=== PATIENT | male | born 1945 | race Caucasian/White ===

== ENCOUNTER 2016-05-03 07:34 | Outpatient (CLI) | payer MEDICARE, OTHER | END 2016-05-03 07:35 | disposition home or self-care (01) | DX: Z00.00 Encounter for general adult medical examination without abnormal findings (principal); E11.9 Type 2 diabetes mellitus without complications; I48.91 Unspecified atrial fibrillation; E78.5 Hyperlipidemia, unspecified; M54.30 Sciatica, unspecified side ==

== ENCOUNTER 2016-11-18 07:55 | Outpatient (CLI) | payer MEDICARE, OTHER ==
[2016-11-18 11:49] LABS: HEMOGLOBIN A1C 0.62 g/dL
[2016-11-18 12:25] LABS: BUN - BLOOD UREA NITROGEN 18 mg/dL (6-20); CALCIUM 9.1 mg/dL (8.5-10.3); CARBON DIOXIDE - CO2 28 mmol/L (21-32); CHLORIDE 103 mmol/L (101-111); CHOL/HDL RATIO 2.1 (<5.0); CHOLESTEROL 127 mg/dL; CREATININE 0.8 mg/dL (0.6-1.2); GFR - MDRD 96 (>89); GLUCOSE 125 mg/dL (70-100); HDL CHOLESTEROL 60 mg/dL; POTASSIUM 4.1 mmol/L (3.5-5.0); SODIUM 137 mmol/L (135-145); TRIGLYCERIDES 37 mg/dL
[2016-11-18 13:08] LABS: LDL CHOLESTEROL,DIRECT 57 mg/dL
== END 2016-11-18 07:56 | disposition home or self-care (01) ==
LOC: LAB.F 07:55
PROVIDERS: ATTEND Internal Medicine
DX: I48.91 Unspecified atrial fibrillation (principal); E11.9 Type 2 diabetes mellitus without complications; N40.1 Benign prostatic hyperplasia with lower urinary tract symptoms; E78.5 Hyperlipidemia, unspecified; M54.30 Sciatica, unspecified side
CPT/HCPCS: 36415; 80048; 80061; 82043; 82570; 83036

== ENCOUNTER 2017-05-12 08:36 | Outpatient (CLI) | payer MEDICARE, OTHER ==
[2017-05-12 11:02] LABS: HB2 TOTAL 14.8 g/dL; HEMOGLOBIN A1C 0.64 g/dL; HEMOGLOBIN A1C % 6.1 % (4.6-6.2)
== END 2017-05-12 08:37 | disposition home or self-care (01) ==
LOC: LAB.F 08:36
PROVIDERS: ATTEND Internal Medicine
DX: E11.9 Type 2 diabetes mellitus without complications (principal)
CPT/HCPCS: 36415; 83036

== ENCOUNTER 2017-12-13 07:27 | Outpatient (CLI) | payer MEDICARE, OTHER ==
[2017-12-13 10:58] LABS: BUN - BLOOD UREA NITROGEN 21 mg/dL (6-20); CALCIUM 9.1 mg/dL (8.5-10.3); CARBON DIOXIDE - CO2 30 mmol/L (21-32); CHLORIDE 102 mmol/L (101-111); CHOL/HDL RATIO 2.3 (<5.0); CHOLESTEROL 126 mg/dL; CREATININE 0.8 mg/dL (0.6-1.2); GFR - MDRD 96 (>89); GLUCOSE 129 mg/dL (70-100); HDL CHOLESTEROL 54 mg/dL; LDL CHOLESTEROL,CALCULATED 62 mg/dL; LDL/HDL RATIO 1.1 (<3.6); SODIUM 139 mmol/L (135-145); VLDL CHOLESTEROL 10 mg/dL
[2017-12-13 11:00] LABS: CREATININE,URINE 92.6 mg/dL
[2017-12-13 11:02] LABS: HB2 TOTAL 14.9 g/dL; HEMOGLOBIN A1C 0.68 g/dL; HEMOGLOBIN A1C % 6.3 % (4.6-6.2)
[2017-12-13 11:08] LABS: MICROALBUMIN,URINE < 0.2 mg/dL (0-300.0)
[2017-12-14 09:27] LABS: HEPATITIS C ANTIBODY NON-REACTIVE (NON-REACTIVE)
== END 2017-12-13 07:28 | disposition home or self-care (01) ==
LOC: LAB.F 07:27
PROVIDERS: ATTEND Internal Medicine
DX: Z00.00 Encounter for general adult medical examination without abnormal findings (principal); I48.91 Unspecified atrial fibrillation; E11.9 Type 2 diabetes mellitus without complications; N40.1 Benign prostatic hyperplasia with lower urinary tract symptoms; E78.5 Hyperlipidemia, unspecified
CPT/HCPCS: 36415; 80048; 80061; 82043; 82570; 83036; 83721; 86803

== ENCOUNTER 2018-05-14 12:31 | Outpatient (CLI) | payer MEDICARE, OTHER ==
[2018-05-14 17:56] LABS: BILIRUBIN,URINE NEGATIVE (NEGATIVE); GLUCOSE, URINE (UA) NEGATIVE (NEGATIVE); KETONES,URINE (UA) NEGATIVE (NEGATIVE); LEUKOCYTE ESTERASE, URINE NEGATIVE (NEGATIVE); NITRITE,URINE NEGATIVE (NEGATIVE); OCCULT BLOOD,URINE NEGATIVE (NEGATIVE); PH,URINE 6.5 PH (5.0-7.5); PROTEIN,URINE NEGATIVE (NEGATIVE); UROBILINOGEN,URINE 0.2 (NORMAL) E.U./dL (NORMAL)
[2018-05-14 18:06] LABS: CLARITY,URINE CLEAR (CLEAR)
== END 2018-05-14 12:32 | disposition home or self-care (01) ==
LOC: LAB.F 12:31
PROVIDERS: ATTEND Internal Medicine
DX: Z00.00 Encounter for general adult medical examination without abnormal findings (principal); I48.91 Unspecified atrial fibrillation; N40.1 Benign prostatic hyperplasia with lower urinary tract symptoms; E78.5 Hyperlipidemia, unspecified; E11.9 Type 2 diabetes mellitus without complications; Z86.010 Personal history of colon polyps; Z12.11 Encounter for screening for malignant neoplasm of colon; N13.8 Other obstructive and reflux uropathy
CPT/HCPCS: 81001; 81003; 87086

== ENCOUNTER 2018-07-02 08:04 | Outpatient (CLI) | payer MEDICARE, OTHER ==
[2018-07-02 11:36] LABS: HB2 TOTAL 16.4 g/dL; HEMOGLOBIN A1C 0.7 g/dL; HEMOGLOBIN A1C % 6.1 % (4.6-6.2)
== END 2018-07-02 08:05 | disposition home or self-care (01) ==
LOC: LAB.F 08:04
PROVIDERS: ATTEND Internal Medicine
DX: I48.91 Unspecified atrial fibrillation (principal); N40.1 Benign prostatic hyperplasia with lower urinary tract symptoms; E78.5 Hyperlipidemia, unspecified; E11.9 Type 2 diabetes mellitus without complications
CPT/HCPCS: 36415; 83036

== ENCOUNTER 2018-12-24 07:56 | Outpatient (CLI) | payer MEDICARE, OTHER ==
[2018-12-24 10:24] LABS: BUN - BLOOD UREA NITROGEN 20 mg/dL (6-20); CALCIUM 9.3 mg/dL (8.5-10.3); CARBON DIOXIDE - CO2 30 mmol/L (21-32); CHLORIDE 98 mmol/L (101-111); CHOL/HDL RATIO 3.6 (<5.0); CHOLESTEROL 190 mg/dL; CREATININE 0.8 mg/dL (0.6-1.2); GFR - MDRD 95 (>89); GLUCOSE 119 mg/dL (70-100); HDL CHOLESTEROL 53 mg/dL; SODIUM 136 mmol/L (135-145)
[2018-12-24 10:27] LABS: CREATININE,URINE 99.2 mg/dL; MICROALBUMIN,URINE 0.4 mg/dL (0-300.0)
[2018-12-24 10:30] LABS: HB2 TOTAL 14.1 g/dL; HEMOGLOBIN A1C 0.58 g/dL; HEMOGLOBIN A1C % 5.9 % (4.6-6.2)
== END 2018-12-24 07:57 | disposition home or self-care (01) ==
LOC: LAB.S 07:56
PROVIDERS: ATTEND Internal Medicine
DX: I48.91 Unspecified atrial fibrillation (principal); N40.1 Benign prostatic hyperplasia with lower urinary tract symptoms; E78.5 Hyperlipidemia, unspecified; E11.9 Type 2 diabetes mellitus without complications; R10.2 Pelvic and perineal pain; Z86.010 Personal history of colon polyps
CPT/HCPCS: 36415; 80048; 80061; 82043; 82570; 83036; 83721

== ENCOUNTER 2020-01-06 09:03 | Outpatient (CLI) | payer MEDICARE, OTHER ==
[2020-01-06 14:34] LABS: BUN - BLOOD UREA NITROGEN 16 mg/dL (6-20); CALCIUM 9.3 mg/dL (8.5-10.3); CARBON DIOXIDE - CO2 28 mmol/L (21-32); CHLORIDE 97 mmol/L (101-111); CHOL/HDL RATIO 3.6 (<5.0); CHOLESTEROL 240 mg/dL; CREATININE 0.8 mg/dL (0.6-1.2); GLUCOSE 122 mg/dL (70-100); HDL CHOLESTEROL 67 mg/dL; LDL CHOLESTEROL,CALCULATED 164 mg/dL; LDL/HDL RATIO 2.4 (<3.6); SODIUM 133 mmol/L (135-145); VLDL CHOLESTEROL 9 mg/dL
[2020-01-06 14:39] LABS: MICROALBUM/CREATININE RATIO,UR 4.9 ug/mg (<30.0); MICROALBUMIN,URINE 0.7 mg/dL (0-300.0)
[2020-01-06 22:40] LABS: HEMOGLOBIN A1c% 6.2 % (4.27-6.07)
== END 2020-01-06 09:04 | disposition home or self-care (01) ==
LOC: LAB.S 09:03
PROVIDERS: ATTEND Internal Medicine
DX: I48.91 Unspecified atrial fibrillation (principal); N40.1 Benign prostatic hyperplasia with lower urinary tract symptoms; N13.8 Other obstructive and reflux uropathy; E78.5 Hyperlipidemia, unspecified; E11.9 Type 2 diabetes mellitus without complications; H91.90 Unspecified hearing loss, unspecified ear
CPT/HCPCS: 36415; 80048; 80061; 82043; 82570; 83036; 83721

== ENCOUNTER 2020-03-10 08:52 | Outpatient (CLI) | payer MEDICARE, OTHER ==
[2020-03-10 14:57] LABS: CHOLESTEROL 144 mg/dL; HDL CHOLESTEROL 71 mg/dL
== END 2020-03-10 08:53 | disposition home or self-care (01) ==
LOC: LAB.S 08:52
PROVIDERS: ATTEND Internal Medicine
DX: Z00.00 Encounter for general adult medical examination without abnormal findings (principal); I48.91 Unspecified atrial fibrillation; N40.1 Benign prostatic hyperplasia with lower urinary tract symptoms; N13.8 Other obstructive and reflux uropathy; E78.5 Hyperlipidemia, unspecified; E11.9 Type 2 diabetes mellitus without complications; H91.90 Unspecified hearing loss, unspecified ear; M25.552 Pain in left hip
CPT/HCPCS: 36415; 80061; 83721

== ENCOUNTER 2020-09-18 11:19 | Outpatient (CLI) | payer MEDICARE, OTHER ==
--- NOTE | 2020-09-18 11:58 | XRAY Report ---
PROCEDURE: Hip w/Pelvis 2-3V LT INDICATIONS: PAIN IN LEFT HIP TECHNIQUE: AP pelvis with lateral view(s) of the bilateral hip(s). COMPARISON: None. FINDINGS: Bones: No fractures or dislocations. Pelvic ring appears intact. No suspicious bony lesions. Mild periarticular osteophyte formation at the bilateral. Soft tissues: The visualized bowel gas pattern is normal. No suspicious soft tissue calcifications. IMPRESSION: Bilateral hip osteoarthritis. No acute fracture. No osseous lesion. If symptoms and/or c linical suspicion for pathology continue, further assessment with repeat plain films, or advanced ja ging (e.g., CT, MRI, or bone scan) is recommended for further assessment.. Reviewed by: Pop Srinivasan MD on 09/18/2020 11:57 AM PDT Approved by: Pop Srinivasan MD on 09/18/2020 11:57 AM PDT Station ID: [id number]
== END 2020-09-18 11:20 | disposition home or self-care (01) ==
LOC: DI.S 11:19
PROVIDERS: ATTEND Internal Medicine
DX: M16.0 Bilateral primary osteoarthritis of hip (principal)

== ENCOUNTER 2020-10-13 08:53 | Outpatient (CLI) | payer MEDICARE, OTHER ==
[2020-10-13 20:03] LABS: ESTIMATED AVERAGE GLUCOSE 131 mg/dL (70-100); HEMOGLOBIN A1c% 6.2 % (4.27-6.07)
== END 2020-10-13 08:54 | disposition home or self-care (01) ==
LOC: LAB.S 08:53
PROVIDERS: ATTEND Internal Medicine
DX: E11.9 Type 2 diabetes mellitus without complications (principal)
CPT/HCPCS: 36415; 83036

== ENCOUNTER 2021-01-13 07:52 | Outpatient (CLI) | payer MEDICARE, OTHER ==
[2021-01-13 15:27] LABS: BUN - BLOOD UREA NITROGEN 17 mg/dL (6-20); CALCIUM 9.3 mg/dL (8.5-10.3); CARBON DIOXIDE - CO2 29 mmol/L (21-32); CHLORIDE 101 mmol/L (101-111); CHOL/HDL RATIO 2.4 (<5.0); CHOLESTEROL 147 mg/dL; CREATININE 0.9 mg/dL (0.6-1.2); GFR - MDRD 83 (>89); GLUCOSE 107 mg/dL (70-100); HDL CHOLESTEROL 62 mg/dL; LDL CHOLESTEROL,CALCULATED 73 mg/dL; LDL/HDL RATIO 1.2 (<3.6); POTASSIUM 4.1 mmol/L (3.5-5.0); SODIUM 137 mmol/L (135-145); TRIGLYCERIDES 60 mg/dL; VLDL CHOLESTEROL 12 mg/dL
[2021-01-13 15:29] LABS: CREATININE,URINE 122.5 mg/dL; MICROALBUM/CREATININE RATIO,UR 4.1 ug/mg (<30.0); MICROALBUMIN,URINE 0.5 mg/dL (0-300.0)
[2021-01-13 20:02] LABS: ESTIMATED AVERAGE GLUCOSE 123 mg/dL (70-100); HEMOGLOBIN A1c% 5.9 % (4.27-6.07)
== END 2021-01-13 07:53 | disposition home or self-care (01) ==
LOC: LAB.S 07:52
PROVIDERS: ATTEND Internal Medicine
DX: E11.9 Type 2 diabetes mellitus without complications (principal); I10 Essential (primary) hypertension
CPT/HCPCS: 36415; 80048; 80061; 82043; 82570; 83036; 83721

== ENCOUNTER 2021-06-24 06:42 | Day surgery (SDC) | payer MEDICARE, OTHER ==
[~2021-06-24 06:42] MED LIST: CYCLOPENTOLATE 1% OPHTH DROPS 2 ML ONE; KETOROLAC 0.45% OPHTH DROPS ONE; PHENYLEPHRINE 2.5% OPHTH 2 ML DROPS ONE; PROPARACAINE 0.5% OPHTH DROPS 15 ML ONE
[2021-06-24] MEDS ORDERED: LACTATED RINGERS 1,000 ML IV ONE (06:46)
[2021-06-24] MEDS ORDERED: MIDAZOLAM 2 MG/2 ML VIAL ONE (07:22)
--- NOTE | 2021-06-24 07:45 | ANESTHESIA ---
Pre-Anesthesia VS, & Labs - Diagnosis L senile combined cataract - Procedure L extraction of cataract w/IOL Vital Signs: Temp Pulse Resp BP Pulse Ox 36.7 C 66 10 L 128/62 97 06/24/21 06:51 06/24/21 06:51 06/24/21 06:51 06/24/21 06:51 06/24/21 06:51 Height: 5 ft 11 in Weight (kg): 79.9 kg Body Mass Index: 24.5 BMI Classification: Healthy weight - NPO >8 hours - Lab Results Current Lab Results: Laboratory Tests 06/24/21 07:11: POC Whole Bld Glucose 134 H Lab results reviewed: Yes Home Medications and Allergies Home Medications: Ambulatory Orders Aspirin [Aspirin EC] 81 mg PO DAILY 06/24/21 Diltiazem HCl [Cardizem Cd] 360 mg PO DAILY 06/24/21 Doxazosin [Cardura] 4 mg PO DAILY 06/24/21 Ezetimibe/Rosuvastatin Calcium [Rosuvastatin-Ezetimibe 5-10 mg] 5 mg PO DAILY 06/24/21 metFORMIN [Glucophage] 500 mg PO ONCE 06/24/21 Aspirin [Aspirin EC] 81 mg PO DAILY 06/24/21 Diltiazem HCl [Cardizem Cd] 360 mg PO DAILY 06/24/21 Doxazosin [Cardura] 4 mg PO DAILY 06/24/21 Ezetimibe/Rosuvastatin Calcium [Rosuvastatin-Ezetimibe 5-10 mg] 5 mg PO DAILY 06/24/21 metFORMIN [Glucophage] 500 mg PO ONCE 06/24/21 Allergies/Adverse Reactions: Allergies Allergy/AdvReac Type Severity Reaction Status Date / Time No Known Drug Allergies Allergy Verified 12/22/14 17:12 Anes History & Medical History - Anesthetic History Anesthesia Complications: reports: No previous complications Family history of Anesthesia Complications: Denies Family history of Malignant Hyperthermia: Denies - Medical History Cardiovascular: reports: Atrial fibrillation Endocrine/Autoimmune: reports: Type 2 diabetes Smoking Status: Never smoker - Surgical History General: reports: Colonoscopy Eyes Ears Nose Throat (EENT): reports: Tonsil/Adenoidectomy, Other Exam General: Alert, Oriented x3, Cooperative Mouth Openin Fingerbreadth Neck Mobility: Normal Mallampati classification: II Thyromental Distance: 4-6 cm Respiratory: Lungs clear, Normal breath sounds, No respiratory distress Cardiovascular: Regular rate (hx AF 1-2 times a year) Neurological: Normal speech Mental/Cognitive Status: Alert/Oriented X3, Normal for patient Cognitive Status: Within normal limits Plan Anesthesia Type: MAC Consent for Procedure(s) Verified and Reviewed: Yes Code Status: Attempt Resuscitation ASA classification: 3-Severe systemic disease Is this case an emergency?: No
[2021-06-24] MEDS ORDERED: TIMOLOL 0.5% OPHTH DROPS OPTH ONE (08:20)
[2021-06-24] MEDS ORDERED: EPINEPHrine 1 MG/ML AMP IR ONE (08:20)
[2021-06-24] MEDS ORDERED: TRIAMCIN/MOXIFLOX OPHTHALMIC 0.6 ML VIAL IO ONE ×2 (08:20→13:37)
[2021-06-24] MEDS ORDERED: BSS/LIDOCAINE/EPINEPHRINE 1 ML SYRINGE IO ONE (08:20)
[2021-06-24] MEDS ORDERED: BRIMONIDINE 0.2% OPHTH DROPS 5 ML OPTH ONE (08:20)
[2021-06-24] MEDS ORDERED: PROPARACAINE 0.5% OPHTH DROPS 15 ML EACHEYE ONE (08:21)
[2021-06-24] MEDS ORDERED: VANCOMYCIN OPHTHALMI 8MG/0.8ML 8 MG/0.8 ML SYRINGE IO ONE (08:21)
[2021-06-24] MEDS ORDERED: LACTATED RINGERS 900 ML IV ONE (08:35)
[2021-06-24 08:51] VITALS: BP 128/60
--- NOTE | 2021-06-24 09:05 | ANESTHESIA POST OP EVALUATION ---
Anesthesia Post Eval - Post Anesthesia Eval Vitals: Last Vital Signs Temp 36.8 C 06/24/21 08:45 Pulse 63 06/24/21 08:50 Resp 15 06/24/21 08:50 BP 128/60 06/24/21 08:50 Pulse Ox 97 06/24/21 08:50 CV Function Including HR & BP: Stable Pain Control: Satisfactory Nausea & Vomiting: Negative Mental Status: Baseline Respiratory Status: Airway Patent Hydration Status: Satisfactory Anesthesia Complications: None
--- NOTE | 2021-06-24 10:23 | OPERATIVE REPORT ---
Operative Report - Other Other Information/Narrative: Date of Surgery: 06/24/21 Preop Dx: Visually significant cataract left eye. This was the first cataract surgery. Postop Dx: Same Procedure: Phacoemulsification with posterior chamber intraocular lens implant left eye Surgeon: Dr. Hira Carballo Anesthesia: Monitored anesthesia care Complications: None Operative Indications: This is a 76-year-old M with progressive vision loss in the left eye due to 3+ nuclear sclerotic and 1+ cortical cataract. Best corrected visual acuity was 20/20 with glare to 20/40 vision in the left eye. Indications for surgery were: - Overall decrease in vision - Difficulty seeing words, closed captions, or game scores on TV - Difficulty seeing street signs - Difficulty driving in low light or at night - Difficulty driving at night because of headlights from other vehicles The patient was consented at length concerning the risks and benefits of cataract surgery after which the patient expressed a desire to proceed with surgery. Operative Procedure: The patient was taken into OR#3 and placed under monitored anesthesia care. A surgical time-out was conducted confirming correct patient, correct procedure, and correct surgical site. The patient was given topical anesthesia and then prepped and draped in the usual sterile fashion. The eye was entered at the 6 and 3 oclock positions. Intracameral Shugarcaine was injected into the anterior chamber followed by a dispersive viscoelastic. A continuous-tear curvilinear capsulorhexis was performed. The nucleus was hydrodissected and phacoemulsified. The patient was twitching throughout the case due to seems to be restless leg syndrome. The cortex was evacuated using automated infusion and aspiration. The iris was somewhat floppy (probably from Doxasozin use) and at one point flowed into the I/A tip. A cohesive viscoelastic was injected into the capsular bag and a 23.0 diopter intraocular lens was inserted into the bag. Infusion and aspiration were used to evacuate the viscoelastic materials from the eye. The wounds were hydrated and the eye inflated to physiologic pressure using balanced salt solution. Approximately 0.25ml of a mixture of triamcinolone and moxifloxacin was injected trans- sclerally into the vitreous in the inferotemporal quadrant using a 30 gauge cannula. An additional 0.55ml of a mixture of triamcinolone, moxifloxacin, and vancomycin was injected subconjunctivally in the superior quadrant for infection and inflammation prophylaxis. Wound integrity was checked with Weck-Radha sponges. The patient was taken from the operating room in good condition and given post- op instructions.
[2021-06-24] MEDS ORDERED: EPINEPHrine 1 MG/ML AMP ONE (13:37)
[2021-06-24] MEDS ORDERED: BRIMONIDINE 0.2% OPHTH DROPS 5 ML ONE (13:37)
[2021-06-24] MEDS ORDERED: BSS/LIDOCAINE/EPINEPHRINE 1 ML VIAL ONE (13:37)
[2021-06-24] MEDS ORDERED: TIMOLOL 0.5% OPHTH DROPS ONE (13:37)
== END 2021-06-24 06:43 | disposition home or self-care (01) ==
LOC: SDS 06:42
PROVIDERS: ATTEND Ophthalmology
DX: E11.36 Type 2 diabetes mellitus with diabetic cataract (principal); H25.812 Combined forms of age-related cataract, left eye; Z79.84 Long term (current) use of oral hypoglycemic drugs
CPT/HCPCS: 66984; A9270; J3490; J7120

== ENCOUNTER 2021-07-29 06:28 | Day surgery (SDC) | payer MEDICARE, OTHER ==
[2021-07-29] MEDS ORDERED: LACTATED RINGERS 1,000 ML IV ONE (06:46)
[2021-07-29] MEDS ORDERED: TRIAMCIN/MOXIFLOX OPHTHALMIC 0.6 ML VIAL IO ONE ×2 (07:08→09:33)
[2021-07-29] MEDS ORDERED: EPINEPHrine 1 MG/ML AMP ONE (07:09)
[2021-07-29] MEDS ORDERED: BRIMONIDINE 0.2% OPHTH DROPS 5 ML ONE (07:10)
[2021-07-29] MEDS ORDERED: TIMOLOL 0.5% OPHTH DROPS ONE (07:10)
[2021-07-29] MEDS ORDERED: BSS/LIDOCAINE/EPINEPHRINE 1 ML VIAL ONE (07:11)
--- NOTE | 2021-07-29 07:29 | ANESTHESIA ---
Pre-Anesthesia VS, & Labs - Diagnosis R senile combined cataract - Procedure R extraction cataract w/IOL Vital Signs: Temp Pulse Resp BP Pulse Ox 36.4 C L 61 16 130/66 100 07/29/21 06:52 07/29/21 06:52 07/29/21 06:52 07/29/21 06:52 07/29/21 06:52 Height: 5 ft 11 in Weight (kg): 78 kg Body Mass Index: 24.0 BMI Classification: Healthy weight - NPO >8 hours - Lab Results Current Lab Results: Laboratory Tests 07/29/21 06:55: POC Whole Bld Glucose 134 H Lab results reviewed: Yes Home Medications and Allergies Aspirin [Aspirin EC] 81 mg PO DAILY 06/24/21 Diltiazem HCl [Cardizem Cd] 360 mg PO DAILY 06/24/21 Doxazosin [Cardura] 4 mg PO DAILY 06/24/21 Ezetimibe/Rosuvastatin Calcium [Rosuvastatin-Ezetimibe 5-10 mg] 5 mg PO DAILY 06/24/21 metFORMIN [Glucophage] 500 mg PO ONCE 06/24/21 Allergies/Adverse Reactions: Allergies Allergy/AdvReac Type Severity Reaction Status Date / Time No Known Drug Allergies Allergy Verified 07/29/21 06:49 Anes History & Medical History - Anesthetic History Anesthesia Complications: reports: No previous complications Family history of Anesthesia Complications: Denies Family history of Malignant Hyperthermia: Denies - Medical History Cardiovascular: reports: Hypertension, Atrial fibrillation Endocrine/Autoimmune: reports: Type 2 diabetes Smoking Status: Never smoker History of Cancer?: No - Surgical History General: reports: Colonoscopy Eyes Ears Nose Throat (EENT): reports: Cataracts, Tonsil/Adenoidectomy, Other Exam General: Alert, Oriented x3, Cooperative Dental: WNL Mouth Openin Fingerbreadth Neck Mobility: Normal Mallampati classification: II Thyromental Distance: 4-6 cm Respiratory: Lungs clear, Normal breath sounds, No respiratory distress Cardiovascular: Regular rate (hx afib 3-4 times in lifetime) Neurological: Normal speech Mental/Cognitive Status: Alert/Oriented X3, Normal for patient Cognitive Status: Within normal limits Plan Anesthesia Type: MAC Consent for Procedure(s) Verified and Reviewed: Yes Code Status: Attempt Resuscitation ASA classification: 3-Severe systemic disease Is this case an emergency?: No
[2021-07-29] MEDS ORDERED: MIDAZOLAM 2 MG/2 ML VIAL ONE (08:40)
[2021-07-29] MEDS ORDERED: fentaNYL 100 MCG/2 ML VIAL ONE (08:40)
[2021-07-29] MEDS ORDERED: LACTATED RINGERS 700 ML IV ONE (09:03)
--- NOTE | 2021-07-29 09:15 | OPERATIVE REPORT ---
Operative Report - Other Other Information/Narrative: Date of Surgery: 07/29/21 Preop Dx: Visually significant cataract right eye. Cataract surgery was performed in the left eye on [id number]. Postop Dx: Same Procedure: Phacoemulsification with posterior chamber intraocular lens implant right eye Surgeon: Dr. Hira Carballo Anesthesia: Monitored anesthesia care Complications: None Operative Indications: This is a 76-year-old M with progressive vision loss in the right eye due to 3+ nuclear sclerotic and 1+ cortical cataract. Best corrected visual acuity was 20/20 with glare to 20/40 vision in the right eye. Indications for surgery were: - Overall decrease in vision - Difficulty seeing words on a computer screen - Difficulty reading - Difficulty seeing words, closed captions, or game scores on TV - Difficulty seeing street signs - Difficulty driving in low light or at night - Difficulty driving at night because of headlights from other vehicles The patient was consented at length concerning the risks and benefits of cataract surgery after which the patient expressed a desire to proceed with surgery. Operative Procedure: The patient was taken into OR#3 and placed under monitored anesthesia care. A surgical time-out was conducted confirming correct patient, correct procedure, and correct surgical site. The patient was given topical anesthesia and then prepped and draped in the usual sterile fashion. The eye was entered at the 6 and 3 oclock positions. Intracameral Shugarcaine was injected into the anterior chamber followed by a dispersive viscoelastic. A continuous-tear curvilinear capsulorhexis was performed. The nucleus was hydrodissected and phacoemulsified. The cortex was evacuated using automated infusion and aspiration. A cohesive viscoelastic was injected into the capsular bag and a 17.0 diopter intraocular lens was inserted into the bag. Infusion and aspiration were used to evacuate the viscoelastic materials from the eye. The wounds were hydrated and the eye inflated to physiologic pressure using balanced salt solution. Approximately 0.25ml of a mixture of triamcinolone and moxifloxacin was injected trans-sclerally into the vitreous in the inferotemporal quadrant using a 30 gauge cannula. An additional 0.55ml of a mixture of triamcinolone, moxifloxacin, and vancomycin was injected subconjun ctivally in the superior quadrant for infection and inflammation prophylaxis. Wound integrity was checked with Weck-Radha sponges. The patient was taken from the operating room in good condition and given post-op instructions.
[2021-07-29 09:31] VITALS: BP 119/55
[2021-07-29] MEDS ORDERED: EPINEPHrine 1 MG/ML AMP IR ONE (09:32)
[2021-07-29] MEDS ORDERED: TIMOLOL 0.5% OPHTH DROPS OPTH ONE (09:32)
[2021-07-29] MEDS ORDERED: BRIMONIDINE 0.2% OPHTH DROPS 5 ML OPTH ONE (09:32)
[2021-07-29] MEDS ORDERED: PROPARACAINE 0.5% OPHTH DROPS 15 ML EACHEYE ONE (09:33)
[2021-07-29] MEDS ORDERED: BSS/LIDOCAINE/EPINEPHRINE 1 ML SYRINGE IO ONE (09:33)
[2021-07-29] MEDS ORDERED: VANCOMYCIN OPHTHALMI 8MG/0.8ML 8 MG/0.8 ML SYRINGE IO ONE (09:34)
--- NOTE | 2021-07-29 09:40 | ANESTHESIA POST OP EVALUATION ---
Anesthesia Post Eval - Post Anesthesia Eval Vitals: Last Vital Signs Temp 36.5 C 07/29/21 09:18 Pulse 66 07/29/21 09:30 Resp 16 07/29/21 09:30 BP 119/55 L 07/29/21 09:30 Pulse Ox 98 07/29/21 09:30 CV Function Including HR & BP: Stable Pain Control: Satisfactory Nausea & Vomiting: Negative Mental Status: Baseline Respiratory Status: Airway Patent Hydration Status: Satisfactory Anesthesia Complications: None
== END 2021-07-29 06:29 | disposition home or self-care (01) ==
LOC: SDS 06:28
PROVIDERS: ATTEND Ophthalmology
DX: E11.36 Type 2 diabetes mellitus with diabetic cataract (principal); H25.811 Combined forms of age-related cataract, right eye; I48.91 Unspecified atrial fibrillation; I10 Essential (primary) hypertension; Z79.82 Long term (current) use of aspirin; Z79.84 Long term (current) use of oral hypoglycemic drugs; Z79.899 Other long term (current) drug therapy; Z98.42 Cataract extraction status, left eye
CPT/HCPCS: 66984; A9270; J3490; J7120

== ENCOUNTER 2021-09-13 07:13 | Outpatient (CLI) | payer MEDICARE, OTHER ==
[2021-09-13 20:00] LABS: ESTIMATED AVERAGE GLUCOSE 131 mg/dL (70-100); HEMOGLOBIN A1c% 6.2 % (4.27-6.07)
== END 2021-09-13 07:14 | disposition home or self-care (01) ==
LOC: LAB.S 07:13
PROVIDERS: ATTEND Internal Medicine
DX: E11.9 Type 2 diabetes mellitus without complications (principal)
CPT/HCPCS: 36415; 83036

== ENCOUNTER 2022-02-21 07:37 | Outpatient (CLI) | payer MEDICARE, OTHER ==
[2022-02-21 14:36] LABS: BASOPHILS % (AUTO) 0.5 %; EOSINOPHILS # (AUTO) 0.1 10^3/uL (0.0-0.7); EOSINOPHILS % (AUTO) 1.9 %; HCT - HEMATOCRIT 41.1 % (42.0-52.0); HGB - HEMOGLOBIN 13.1 g/dL (14.0-18.0); LYMPHOCYTES % (AUTO) 16.9 %; MEAN CORPUSCULAR HEMOGLOBIN 29.3 pg (27.0-31.0); MEAN CORPUSCULAR HGB CONC 31.9 g/dL (32.0-36.0); MEAN CORPUSCULAR VOLUME 91.9 fL (80.0-94.0); MEAN PLATELET VOLUME 10.9 fL (7.4-11.4); MONOCYTES # (AUTO) 0.6 10^3/uL (0.0-1.0); MONOCYTES % (AUTO) 10.8 %; NEUTROPHILS % (AUTO) 69.7 %; PLT - PLATELET COUNT 170 10^3/uL (130-450); RED BLOOD COUNT 4.47 10^6/uL (4.70-6.10); WHITE BLOOD COUNT 5.8 x10^3/uL (4.8-10.8)
[2022-02-21 15:04] LABS: ALBUMIN 4.3 g/dL (3.2-5.5); ALBUMIN/GLOBULIN RATIO 1.5 (1.0-2.2); ALKALINE PHOSPHATASE 51 IU/L (42-121); ALT ALANINE AMINOTRANSFERASE 20 IU/L (10-60); AST ASPARTATE AMINOTRANSFERASE 21 IU/L (10-42); BILIRUBIN,TOTAL 0.4 mg/dL (0.2-1.0); BUN - BLOOD UREA NITROGEN 22 mg/dL (6-20); CALCIUM 9.3 mg/dL (8.5-10.3); CARBON DIOXIDE - CO2 27 mmol/L (21-32); CHLORIDE 104 mmol/L (101-111); CHOL/HDL RATIO 2.1 (<5.0); CHOLESTEROL 127 mg/dL; CREATININE 0.9 mg/dL (0.6-1.2); GFR - MDRD 82 (>89); GLUCOSE 124 mg/dL (70-100); HDL CHOLESTEROL 61 mg/dL; LDL CHOLESTEROL,CALCULATED 55 mg/dL; LDL/HDL RATIO 0.9 (<3.6); POTASSIUM 4.1 mmol/L (3.5-5.0); SODIUM 139 mmol/L (135-145); TOTAL PROTEIN 7.2 g/dL (6.7-8.2); TRIGLYCERIDES 57 mg/dL; VLDL CHOLESTEROL 11 mg/dL
[2022-02-21 15:30] LABS: PT - PROTHROMBIN TIME 10.9 secs (9.9-12.6)
[2022-02-21 15:34] LABS: CREATININE,URINE 131.4 mg/dL; MICROALBUM/CREATININE RATIO,UR 6.1 ug/mg (<30.0); MICROALBUMIN,URINE 0.8 mg/dL (0-300.0)
[2022-02-21 21:17] LABS: ESTIMATED AVERAGE GLUCOSE 131 mg/dL (70-100); HEMOGLOBIN A1c% 6.2 % (4.27-6.07)
== END 2022-02-21 07:38 | disposition home or self-care (01) ==
LOC: LAB.S 07:37
PROVIDERS: ATTEND Internal Medicine
DX: I10 Essential (primary) hypertension (principal); I48.91 Unspecified atrial fibrillation; E11.9 Type 2 diabetes mellitus without complications; R10.30 Lower abdominal pain, unspecified; R35.0 Frequency of micturition
CPT/HCPCS: 36415; 80053; 80061; 82043; 82570; 83036; 83721; 85025; 85610; 85730

== ENCOUNTER 2022-08-30 08:33 | Outpatient (CLI) | payer MEDICARE, OTHER ==
[2022-08-30 20:57] LABS: ESTIMATED AVERAGE GLUCOSE 140 mg/dL (70-100); HEMOGLOBIN A1c% 6.5 % (4.27-6.07)
== END 2022-08-30 08:34 | disposition home or self-care (01) ==
LOC: LAB.S 08:33
PROVIDERS: ATTEND Internal Medicine
DX: E11.9 Type 2 diabetes mellitus without complications (principal)
CPT/HCPCS: 36415; 83036

== ENCOUNTER 2023-01-13 14:20 | Outpatient (CLI) | payer MEDICARE, OTHER | END 2023-01-13 23:59 | disposition short-term general hospital (02) | LOC: EMS 14:20 | DX: R53.1 Weakness (principal); R11.0 Nausea; R42 Dizziness and giddiness; R00.1 Bradycardia, unspecified | CPT/HCPCS: A0425; A0429 ==

== ENCOUNTER 2023-01-19 07:12 | Outpatient (CLI) | payer MEDICARE, OTHER ==
[2023-01-19 14:32] LABS: BASOPHILS % (AUTO) 0.8 %; EOSINOPHILS # (AUTO) 0.1 10^3/uL (0.0-0.7); EOSINOPHILS % (AUTO) 3.8 %; HCT - HEMATOCRIT 34.3 % (42.0-52.0); HGB - HEMOGLOBIN 10.8 g/dL (14.0-18.0); LYMPHOCYTES # (AUTO) 0.9 10^3/uL (1.5-3.5); LYMPHOCYTES % (AUTO) 24.7 %; MEAN CORPUSCULAR HEMOGLOBIN 27.9 pg (27.0-31.0); MEAN CORPUSCULAR HGB CONC 31.5 g/dL (32.0-36.0); MEAN CORPUSCULAR VOLUME 88.6 fL (80.0-94.0); MEAN PLATELET VOLUME 10.3 fL (7.4-11.4); MONOCYTES # (AUTO) 0.6 10^3/uL (0.0-1.0); MONOCYTES % (AUTO) 15.9 %; NEUTROPHILS % (AUTO) 54.8 %; PLT - PLATELET COUNT 183 10^3/uL (130-450); RED BLOOD COUNT 3.87 10^6/uL (4.70-6.10); RED CELL DISTRIBUTION WIDTH 12.8 % (12.0-15.0); WHITE BLOOD COUNT 3.7 x10^3/uL (4.8-10.8)
[2023-01-19 14:56] LABS: THYROID STIMULATING HORMONE 1.27 uIU/mL (0.34-5.60)
[2023-01-19 15:01] LABS: ESTIMATED AVERAGE GLUCOSE 123 mg/dL (70-100); HEMOGLOBIN A1c% 5.9 % (4.27-6.07)
[2023-01-19 15:13] LABS: ALBUMIN 4.3 g/dL (3.2-5.5); ALBUMIN/GLOBULIN RATIO 1.7 (1.0-2.2); ALKALINE PHOSPHATASE 36 IU/L (42-121); ALT ALANINE AMINOTRANSFERASE 15 IU/L (10-60); AST ASPARTATE AMINOTRANSFERASE 17 IU/L (10-42); BILIRUBIN,TOTAL 0.3 mg/dL (0.2-1.0); BUN - BLOOD UREA NITROGEN 16 mg/dL (6-20); CALCIUM 9.5 mg/dL (8.5-10.3); CARBON DIOXIDE - CO2 29 mmol/L (21-32); CHLORIDE 103 mmol/L (101-111); CHOL/HDL RATIO 2.4 (<5.0); CHOLESTEROL 141 mg/dL; CK- CREATINE KINASE 100 IU/L (30-223); CREATININE 0.9 mg/dL (0.6-1.3); GFR - MDRD 82 (>89); GLUCOSE 125 mg/dL (74-104); HDL CHOLESTEROL 60 mg/dL; LDL CHOLESTEROL,CALCULATED 66 mg/dL; LDL/HDL RATIO 1.1 (<3.6); POTASSIUM 4.2 mmol/L (3.5-4.5); SODIUM 139 mmol/L (135-145); TOTAL PROTEIN 6.8 g/dL (6.4-8.9); TRIGLYCERIDES 77 mg/dL (48-352); VLDL CHOLESTEROL 15 mg/dL
[2023-01-19 15:33] LABS: CREATININE,URINE 67.4 mg/dL
[2023-01-19 15:34] LABS: MICROALBUMIN,URINE < 0.7 mg/dL
== END 2023-01-19 07:13 | disposition home or self-care (01) ==
LOC: LAB.S 07:12
PROVIDERS: ATTEND Internal Medicine
DX: I10 Essential (primary) hypertension (principal); I48.91 Unspecified atrial fibrillation; E11.9 Type 2 diabetes mellitus without complications; R53.83 Other fatigue; M62.81 Muscle weakness (generalized)
CPT/HCPCS: 36415; 80053; 80061; 82043; 82550; 82570; 83036; 83721; 84443; 85025

== ENCOUNTER 2023-11-01 07:11 | Outpatient (CLI) | payer MEDICARE, OTHER ==
[2023-11-01 14:52] LABS: BASOPHILS % (AUTO) 1.1 %; EOSINOPHILS # (AUTO) 0.2 10^3/uL (0.0-0.7); EOSINOPHILS % (AUTO) 5.7 %; HCT - HEMATOCRIT 39.7 % (42.0-52.0); LYMPHOCYTES # (AUTO) 0.8 10^3/uL (1.5-3.5); LYMPHOCYTES % (AUTO) 20.7 %; MEAN CORPUSCULAR HEMOGLOBIN 29.6 pg (27.0-31.0); MEAN CORPUSCULAR HGB CONC 32.7 g/dL (32.0-36.0); MEAN CORPUSCULAR VOLUME 90.4 fL (80.0-94.0); MEAN PLATELET VOLUME 10.6 fL (7.4-11.4); MONOCYTES # (AUTO) 0.4 10^3/uL (0.0-1.0); MONOCYTES % (AUTO) 11.7 %; NEUTROPHILS # (AUTO) 2.2 10^3/uL (1.5-6.6); NEUTROPHILS % (AUTO) 60.8 %; PLT - PLATELET COUNT 164 10^3/uL (130-450); RED BLOOD COUNT 4.39 10^6/uL (4.70-6.10); RED CELL DISTRIBUTION WIDTH 12.1 % (12.0-15.0); WHITE BLOOD COUNT 3.7 x10^3/uL (4.8-10.8)
[2023-11-01 16:03] LABS: CALCIUM 9.7 mg/dL (8.5-10.3); CREATININE 0.8 mg/dL (0.6-1.3); POTASSIUM 4.1 mmol/L (3.5-4.5)
[2023-11-01 20:33] LABS: ESTIMATED AVERAGE GLUCOSE 120 mg/dL (70-100); HEMOGLOBIN A1c% 5.8 % (4.27-6.07)
== END 2023-11-01 07:12 | disposition home or self-care (01) ==
LOC: LAB.S 07:11
PROVIDERS: ATTEND Internal Medicine
DX: D64.9 Anemia, unspecified (principal); E11.9 Type 2 diabetes mellitus without complications; D72.819 Decreased white blood cell count, unspecified
CPT/HCPCS: 36415; 80048; 83036; 83540; 84466; 85025

== ENCOUNTER 2024-01-10 09:48 | Outpatient (CLI) | payer MEDICARE, OTHER ==
[2024-01-10 14:45] LABS: BASOPHILS % (AUTO) 0.8 %; EOSINOPHILS # (AUTO) 0.2 10^3/uL (0.0-0.7); EOSINOPHILS % (AUTO) 4.2 %; HCT - HEMATOCRIT 40.4 % (42.0-52.0); HGB - HEMOGLOBIN 13.7 g/dL (14.0-18.0); LYMPHOCYTES # (AUTO) 0.9 10^3/uL (1.5-3.5); LYMPHOCYTES % (AUTO) 24.4 %; MEAN CORPUSCULAR HEMOGLOBIN 29.8 pg (27.0-31.0); MEAN CORPUSCULAR HGB CONC 33.9 g/dL (32.0-36.0); MEAN PLATELET VOLUME 10.4 fL (7.4-11.4); MONOCYTES # (AUTO) 0.4 10^3/uL (0.0-1.0); MONOCYTES % (AUTO) 12.5 %; NEUTROPHILS % (AUTO) 57.8 %; PLT - PLATELET COUNT 182 10^3/uL (130-450); RED BLOOD COUNT 4.59 10^6/uL (4.70-6.10); RED CELL DISTRIBUTION WIDTH 12.6 % (12.0-15.0); WHITE BLOOD COUNT 3.5 x10^3/uL (4.8-10.8)
[2024-01-10 15:41] LABS: CREATININE,URINE 40.6 mg/dL
[2024-01-10 15:42] LABS: MICROALBUMIN,URINE < 0.7 mg/dL
[2024-01-10 15:49] LABS: % IRON SATURATION 44 % (20-50); BUN - BLOOD UREA NITROGEN 15 mg/dL (6-20); CALCIUM 9.2 mg/dL (8.5-10.3); CARBON DIOXIDE - CO2 28 mmol/L (21-32); CHLORIDE 98 mmol/L (101-111); CHOL/HDL RATIO 3.2 (<5.0); CHOLESTEROL 217 mg/dL; CREATININE 0.7 mg/dL (0.6-1.3); GFR - MDRD 110 (>89); GLUCOSE 117 mg/dL (74-104); HDL CHOLESTEROL 68 mg/dL; IRON 154 ug/dL (50-212); LDL CHOLESTEROL,CALCULATED 126 mg/dL; LDL/HDL RATIO 1.9 (<3.6); POTASSIUM 4.2 mmol/L (3.5-4.5); SODIUM 131 mmol/L (135-145); TOTAL IRON BINDING CAPACITY 351 ug/dL (250-450); TRANSFERRIN 251 mg/dL (203-362); TRIGLYCERIDES 115 mg/dL; VLDL CHOLESTEROL 23 mg/dL
[2024-01-10 19:52] LABS: ESTIMATED AVERAGE GLUCOSE 131 mg/dL (70-100); HEMOGLOBIN A1c% 6.2 % (4.27-6.07)
== END 2024-01-10 09:49 | disposition home or self-care (01) ==
LOC: LAB.S 09:48
PROVIDERS: ATTEND Internal Medicine
DX: D64.9 Anemia, unspecified (principal); I48.91 Unspecified atrial fibrillation; E11.9 Type 2 diabetes mellitus without complications
CPT/HCPCS: 36415; 80048; 80061; 82043; 82570; 83036; 83540; 83721; 84466; 85025

== ENCOUNTER 2025-03-03 19:06 | Inpatient (IN) ==
[2025-03-03 19:46] LABS: HCT - HEMATOCRIT 40.9 % (42.0-52.0); HGB - HEMOGLOBIN 13.7 g/dL (14.0-18.0); MEAN PLATELET VOLUME 9.6 fL (7.4-11.4); NRBC ABSOLUTE COUNT (AUTO) 0.00 x10^3/uL; NUCLEATED RED BLOOD CELLS AUTO 0.0 /100WBC; PLT - PLATELET COUNT 166 10^3/uL (130-450); RED CELL DISTRIBUTION WIDTH 13.9 % (12.0-15.0)
--- NOTE | 2025-03-03 19:57 | ED Physician Documentation ---
History of Present Illness Stated complaint Stated Complaint: HBP, LOW HR Chief complaint Chief Complaint: General History obtained from History obtained from: Patient Additonal information Additional information: 79-year-old gentleman with history of hypertension, although no longer on antihypertensives as it got better without medication, type 2 diabetes and paroxysmal atrial fibrillation on a DOAC. He became acutely dizzy with disequilibrium around 8 AM this morning. He felt uncoordinated. He was mentally clear. He had been traveling down the [place] area to visit his sons and he got back and on return home because of the acute symptoms he started checking his blood pressures and noticed it was much higher than usual for him peaking at around 200/80. He denies chest pain or trouble breathing. Meds/Allgy Home Medications Ambulatory Orders Medication Instructions Recorded Confirmed aspirin 81 mg tablet,delayed 81 mg PO DAILY 06/24/21 0 07/29/21 release diltiazem HCl 360 mg 360 mg PO DAILY 06/24/21 capsule,extended release 24 hr (Cardizem CD) doxazosin 4 mg tablet 4 mg PO DAILY 06/24/2107/29 ezetimibe 10 mg-rosuvastatin 5 mg 5 mg PO DAILY 07/29/21 tablet metformin 500 mg tablet 500 mg PO ONCE 06/24/2107/01 Allergies Allergies Allergy/AdvReac Type Severity Reaction Status Date / Time No Known Drug Allergies Allergy Verified 03/03/25 19:26 PFSH Active Problems All Active Problems (Updated 03/03/25 @ 22:12 by Nathaniel Ferrer MD) 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) Laceration of calf (Acute) Social History Social History Do you feel safe in your home environment?: Yes History of physical, verbal, emotional, or financial abuse?: No Exam Exam Vital Signs: Vital Signs x48h Temp Pulse Resp BP Pulse Ox 03/03/25 22:00 59 L 18 189/85 H 98 03/03/25 21:00 59 L 196/87 H 03/03/25 20:30 58 L 166/64 H 03/03/25 20:15 59 L 173/88 H 03/03/25 20:00 57 L 178/78 H 03/03/25 19:48 62 20 200/88 H 98 03/03/25 19:20 36.6 C 65 18 180/80 H 99 Constitutional normal general appearance and no apparent distress Eyes PERRL and EOMs intact bilaterally Respiratory breath sounds equal bilaterally and normal respiratory effort Cardiovascular normal heart rate noted, regular rhythm noted and no murmur Gastrointestinal abdomen soft to palpation and nontender to palpation Neurology hoistman II-XII intact and GCS 15 He has normal reivfy-xh-tgna testing bilaterally, no pronator drift and no weakness in any extremity. That said he has difficulty with dvdp-mn-nsnk testing on the left leg and he has an obvious disequilibrium that seems to be when he has his left foot planted when walking. Results Vitals Vitals: Vital Signs - 24 hr 03/03/25 19:20 03/03/25 19:48 03/03/25 20:00 Temperature 36.6 C Temperature Source Temporal Artery Scan Pulse Rate 65 62 57 L Respiratory Rate 18 20 Blood Pressure 180/80 H 200/88 H 178/78 H O2 Saturation 99 98 O2 Source Room air Room air Pain Intensity 0 03/03/25 20:15 03/03/25 20:30 03/03/25 21:00 Temperature Temperature Source Pulse Rate 59 L 58 L 59 L Respiratory Rate Blood Pressure 173/88 H 166/64 H 196/87 H O2 Saturation O2 Source Pain Intensity 03/03/25 22:00 Temperature Temperature Source Pulse Rate 59 L Respiratory Rate 18 Blood Pressure 189/85 H O2 Saturation 98 O2 Source Room air Pain Intensity 0 Oxygen O2 Source Room air EKG (time done) 1930: EKG releavant findings:: EKG personally interpreted by author of this note. Relevant findings are: Normal sinus rhythm with rate of 54. No abnormalities. Labs Labs: Laboratory Tests 03/03/25 19:40 WBC 3.6 L RBC 4.76 Hgb 13.7 L Hct 40.9 L MCV 85.9 MCH 28.8 MCHC 33.5 RDW 13.9 Plt Count 166 MPV 9.6 Neut # (Auto) 2.0 Lymph # (Auto) 1.0 L Ralls # (Auto) 0.4 Eos # (Auto) 0.2 Baso # (Auto) 0.0 Absolute Nucleated RBC 0.00 Nucleated RBC % 0.0 Sodium 136 Potassium 4.0 Chloride 99 L Carbon Dioxide 30 Anion Gap 7.0 BUN 28 H Creatinine 0.8 Estimated GFR (MDRD) 94 Glucose 106 H Calcium 9.7 Magnesium 2.4 H Total Bilirubin 0.5 AST 15 ALT 12 Alkaline Phosphatase 51 Total Protein 7.5 Albumin 4.7 Globulin 2.8 Albumin/Globulin Ratio 1.7 Lipase 63 PD Medical Decision Making ED course ED course: He presents with an acute disequilibrium and noticed hypertension at home. My concern would be that he had a posterior stroke and then subsequently developed reactive hypertension. Discussed with him that after a stroke hypertension can be a normal reflex to the body and we do not treat this acutely as it actually is neuroprotective, in fact I will add on some IV fluids for him. We will obtain CT imaging of the head and angiography of the head and neck but discussed with patient that he would likely need to stay for observation for an MRI in the morning given the circumstances and he is agreeable. CT/CTA discussed with radiologist and negative with the exception of pretty convincing findings for right vertebral dissection which may explain his findings. Given the new complexity of the case I discussed the case by phone with our telestroke neurologist who recommended bringing him in for an MRI. If the MRI is positive for CVA he would recommend adding baby aspirin to his DOAC. It would also be useful to do MRA of the neck for clarification. Telehealth consult submitted at 9:[address] Clarita Zamorano for obs at 2210 Discharge Plan Discharge Patient Disposition: ED Place in Observation Clinical Impression: Disequilibrium syndrome, Dissection of vertebral artery Prescriptions: No Action metformin 500 MG tablet 500 mg PO ONCE diltiazem HCl [Cardizem CD] 360 MG capsule,extended release 24hr 360 mg PO DAILY Patient Comments: TAKE 1 CAPSULE BY MOUTH EVERY DAY aspirin 81 MG tablet,delayed release (DR/EC) 81 mg PO DAILY doxazosin 4 MG tablet 4 mg PO DAILY ezetimibe-rosuvastatin 1 EACH tablet 5 mg PO DAILY Print Language: Bulgarian Stand Alone Forms: PCP List
[2025-03-03 20:02] LABS: ALT ALANINE AMINOTRANSFERASE 12.0 IU/L (10-60); AST ASPARTATE AMINOTRANSFERASE 15.0 IU/L (10-42); BUN - BLOOD UREA NITROGEN 28.0 mg/dL (6-20); CARBON DIOXIDE - CO2 30.0 mmol/L (21-32); CREATININE 0.8 mg/dL (0.6-1.3); GFR - MDRD 94.0 (>89)
[2025-03-03] MEDS: SODIUM CHLORIDE 0.9% 1,000 ML IV STA (20:15)
--- NOTE | 2025-03-03 21:50 | CT Report ---
PROCEDURE: CT Head WO, CT Angio Head/Neck INDICATIONS: CVA sx TECHNIQUE: Pre-contrast 4.5 mm thick sections acquired from the foramen magnum to the vertex. After the administration of intravenous contrast, 1 mm thick sections acquired from the aortic arch through the [place] of [place]. Post-contrast 4.5 mm thick sections then re-acquired from the foramen magnum to the vertex. 3- dimensional uayrfhp-wwojegupp-uypakukpfc (MIP) and/or volume rendering reformats were acquired of the central intracranial vasculature and neck separately. CONTRAST: omni 80ml COMPARISON: None available. FINDINGS: HEAD: ANTERIOR CIRCULATION: Intracranial internal carotid arteries: Patent. Mild to moderate atherosclerotic vascular disease. Anterior cerebral arteries: Patent. Middle cerebral arteries: Patent. Other: No aneurysms identified. POSTERIOR CIRCULATION: Visualized portions of the vertebral arteries: Patent. Mild atherosclerotic vascular disease. Basilar artery: Patent. Posterior cerebral arteries: Patent. Other: No aneurysms are seen. CSF spaces: Ventricles are normal in size and shape. Basal cisterns are patent. No extra-axial fluid collections. Brain: No midline shift. No intracranial bleeds or masses. Lucia-white matter interface appears intact. Scattered periventricular white matter hypodensities compatible with age-related chronic microvascular disease. Skull and face: Calvarium and facial bones appear intact, without suspicious lesions. Sinuses: The mastoids are clear. Minimal to mild ethmoid and maxillary sinus mucosal thickening NECL: CAROTID SYSTEM: Plaque burden: Mild mural plaque at the bilateral carotid bulbs. The origins of the common carotid arteries: Patent. The common carotid arteries: Patent. The internal carotid arteries: Patent. POSTERIOR CIRCULATION: The origins of the vertebral arteries: Patent. Vertebral arteries: Left dominant vertebral artery system. Greater than 50% decrease in size of the intracranial right vertebral artery, which continues as a diminutive vessel to the basilar artery confluence (image [id number] of series 6). The left vertebral artery is patent. Basilar artery: Patent. 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 Soft tissues: Visualized neck soft tissues demonstrate no suspicious abnormalities. The thyroid gland is normal. Bones: No suspicious bony lesions. Visualized cervical spine appears normally aligned. IMPRESSION: 1. No acute intracranial hemorrhage or CT evidence of large territory infarction. 2. 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 The left vertebral artery is patent with a left dominant system. 3. The anterior intracranial circulation is within normal limits without evidence of stenosis or aneurysm. 4. Minimal to mild atherosclerotic vascular disease of the carotid bulbs without significant carotid artery stenosis, dissection, or aneurysm. Critical result: Imaging findings were discussed with Dr. Nathaniel Stout of [facility] emergency department via telephone with verification of understanding at 9:46 p.m. on 03/03/2025. Reviewed by: Hira Donovan MD on 03/03/2025 9:46 PM PST Approved by: Hira Donovan MD on 03/03/2025 9:46 PM PST Station ID: [id number]
--- NOTE | 2025-03-03 21:50 | CT Report ---
PROCEDURE: CT Head WO, CT Angio Head/Neck INDICATIONS: CVA sx TECHNIQUE: Pre-contrast 4.5 mm thick sections acquired from the foramen magnum to the vertex. After the administration of intravenous contrast, 1 mm thick sections acquired from the aortic arch through the [place] of [place]. Post-contrast 4.5 mm thick sections then re-acquired from the foramen magnum to the vertex. 3- dimensional xjbeohi-aujfhpnfx-xzqvkboqjw (MIP) and/or volume rendering reformats were acquired of the central intracranial vasculature and neck separately. CONTRAST: omni 80ml COMPARISON: None available. FINDINGS: HEAD: ANTERIOR CIRCULATION: Intracranial internal carotid arteries: Patent. Mild to moderate atherosclerotic vascular disease. Anterior cerebral arteries: Patent. Middle cerebral arteries: Patent. Other: No aneurysms identified. POSTERIOR CIRCULATION: Visualized portions of the vertebral arteries: Patent. Mild atherosclerotic vascular disease. Basilar artery: Patent. Posterior cerebral arteries: Patent. Other: No aneurysms are seen. CSF spaces: Ventricles are normal in size and shape. Basal cisterns are patent. No extra-axial fluid collections. Brain: No midline shift. No intracranial bleeds or masses. Lucia-white matter interface appears intact. Scattered periventricular white matter hypodensities compatible with age-related chronic microvascular disease. Skull and face: Calvarium and facial bones appear intact, without suspicious lesions. Sinuses: The mastoids are clear. Minimal to mild ethmoid and maxillary sinus mucosal thickening NECL: CAROTID SYSTEM: Plaque burden: Mild mural plaque at the bilateral carotid bulbs. The origins of the common carotid arteries: Patent. The common carotid arteries: Patent. The internal carotid arteries: Patent. POSTERIOR CIRCULATION: The origins of the vertebral arteries: Patent. Vertebral arteries: Left dominant vertebral artery system. Greater than 50% decrease in size of the intracranial right vertebral artery, which continues as a diminutive vessel to the basilar artery confluence (image [id number] of series 6). The left vertebral artery is patent. Basilar artery: Patent. 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 Soft tissues: Visualized neck soft tissues demonstrate no suspicious abnormalities. The thyroid gland is normal. Bones: No suspicious bony lesions. Visualized cervical spine appears normally aligned. IMPRESSION: 1. No acute intracranial hemorrhage or CT evidence of large territory infarction. 2. 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 The left vertebral artery is patent with a left dominant system. 3. The anterior intracranial circulation is within normal limits without evidence of stenosis or aneurysm. 4. Minimal to mild atherosclerotic vascular disease of the carotid bulbs without significant carotid artery stenosis, dissection, or aneurysm. Critical result: Imaging findings were discussed with Dr. Nathaniel Stout of [facility] emergency department via telephone with verification of understanding at 9:46 p.m. on 03/03/2025. Reviewed by: Hira Donovan MD on 03/03/2025 9:46 PM PST Approved by: Hira Donovan MD on 03/03/2025 9:46 PM PST Station ID: [id number]
--- NOTE | 2025-03-03 22:50 | HISTORY & PHYSICAL EXAMINATION ---
Chief Complaint Chief Complaint Chief Complaint: dizziness History of Present Illness History of Present Illness HPI Comment/Other: 79 yom h/o afib on DOAC. presented with feeling dizzy. symptoms started around 8am. He explained the dizziness was worsened when he was moving around. He also had associated mild worsening of his vision and his gait. Throughout the day the symptoms did not improve with rest. He also noticed that his blood-pressure was unusually high with systolic 160-180s, this did not improve with rest. In the ED, he was noticed to have ataxia and veered to the left with walking. 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 this was discussed with tele-stroke and it was advised that patient be admitted for further evaluation and management. This visit was performed using telehealth tools, including phone and live-video. patient provided verbal consent to complete this telemedicine encounter. During the time my interview and evaluation, the patient was located at [facility] in the [facility], I was located in [place]. 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) Stroke (Acute) Laceration of calf (Acute) Social History Social History Do you feel safe in your home environment?: Yes History of physical, verbal, emotional, or financial abuse?: No Meds/Allgy Home Medications Ambulatory Orders Medication Instructions Recorded Confirmed aspirin 81 mg tablet,delayed 81 mg PO DAILY 06/24/21 0 07/29/21 release diltiazem HCl 360 mg 360 mg PO DAILY 06/24/21 capsule,extended release 24 hr (Cardizem CD) doxazosin 4 mg tablet 4 mg PO DAILY 06/24/2107/29 ezetimibe 10 mg-rosuvastatin 5 mg 5 mg PO DAILY 07/29/21 tablet metformin 500 mg tablet 500 mg PO ONCE 06/24/2107/01 Allergies Allergies Allergy/AdvReac Type Severity Reaction Status Date / Time No Known Drug Allergies Allergy Verified 03/03/25 19:26 Exam Exam Vital Signs: Vital Signs x48h Temp Pulse Resp BP Pulse Ox 03/03/25 22:00 59 L 18 189/85 H 98 03/03/25 21:00 59 L 196/87 H 03/03/25 20:30 58 L 166/64 H 03/03/25 20:15 59 L 173/88 H 03/03/25 20:00 57 L 178/78 H 03/03/25 19:48 62 20 200/88 H 98 03/03/25 19:20 36.6 C 65 18 180/80 H 99 Examination as recorded is based on patient and staff reported information as well as peripheral observation. Constitutional normal general appearance and no apparent distress Eyes PERRL and EOMs intact bilaterally Cardiovascular normal heart rate noted Extremities full ROM Neurology credit risk officer II-XII intact, no focal motor deficit noted, no sensory deficits noted, gait abnormality noted (ataxic) and coordination abnormality noted (xtus-qy-gdza test abnormal) Skin skin color normal Conclusion/Plan Problem List (1) Stroke-like symptom: Plan: acute onset dizziness and ataxia. CVA suspected -CT head reviewed without contrast. No acute intracranial abnormality noted -CTA reviewed showing right vertebral artery dissection -will followup with MRI head and MRA neck, per neurology recommendations -if positive for acute stroke will add aspirin -check lipid panel -obtain echo with bubble study -monitor on telemetry -permissive hypertension x 24hours (2) Dissection of vertebral artery: Plan: As seen on CTA. will follow up with MRI to evalaute for evidence of subsequent stroke -neurology consulted (3) Atrial fibrillation: Plan: home medications reviewed. will resume cardizem and xeralto Plan Patient will be admitted to the hospitalist service under outpatient-observation status. less than 2 midnights expected for management. Lab Results Lab results reviewed: Yes 03/03/25 19:40 03/03/25 19:40 Diagnostic Imaging Results Diagnostic Imaging Results: positive Final report reviewed EKG Results EKG Interpreted Independently: Yes Core Measures Anticipated LOS I expect patient to be DC'd or transferred within 96 hours.: Yes DVT/VTE - Prophylaxis VTE/DVT Device ordered at admit?: Yes Telemedicine Consult Details Provider Location & Consult Time Telemedicine consultation conducted via videoconferencing?: Yes
[2025-03-03] MEDS: DOXAZOSIN 1 MG TABLET PO STA (22:54)
[2025-03-03] MEDS: FINASTERIDE 5 MG TABLET PO STA (22:54)
[2025-03-03] MEDS ORDERED: ACETAMINOPHEN 325 MG TABLET PO PRN (23:15)
[2025-03-03] MEDS ORDERED: ONDANSETRON ODT 4 MG TABLET TL PRN (23:15)
[2025-03-03] MEDS ORDERED: SODIUM CHLORIDE FLUSH 0.9% 10 ML SYRINGE IVP PRN (23:15)
[2025-03-04] MEDS: SODIUM CHLORIDE FLUSH 0.9% 10 ML SYRINGE IVP SCH (01:39)
[2025-03-04 05:34] LABS: BUN - BLOOD UREA NITROGEN 28 mg/dL (6-20); CARBON DIOXIDE - CO2 28 mmol/L (21-32); CHOL/HDL RATIO 3.5 (<5.0); CREATININE 0.8 mg/dL (0.6-1.3); GFR - MDRD 94 (>89); LDL/HDL RATIO 1.9 (<3.6); VLDL CHOLESTEROL 32 mg/dL
--- NOTE | 2025-03-04 08:43 | PROVIDER PROGRESS NOTE ---
Subjective Subjective Subjective: Patient states that his unsteadiness has almost fully resolved. When asked about it further, he states it has been going on for about 2 to 3 years. Yesterday afternoon, he was in his car, driving home from [place], when he noticed that he started feeling dizzy. He pulled over, and when he tried to step out, he felt like he was way off balance. He denies any room spinning sensation or lightheadedness. He has had no history of strokes or cardiac problems in the past, except for his atrial fibrillation. He has not seen any director of speech pathology in many years. He does endorse some palpitations at times. He denies any chest pain. He denies any other weaknesses. He has had no changes to any of his medications. He has a history of atrial fibrillation on Xarelto, duo-scyjfgr-koczwvrzw diabetes mellitus, hypertension currently not on any medications, as well as benign prostatic hypertrophy. He was previously on diltiazem, but this has been stopped for a couple years. He remains on Xarelto, doxazosin, finasteride though. Current Medications Current Medications Current Medications: Current Medications Generic Name Dose Route Start Last Admin Trade Name Freq PRN Reason Stop Dose Admin Acetaminophen 650 mg 03/03/25 23:15 Acetaminophen 325 Mg Tablet PO Q4HR PRN Pain 1 to 4, or Fever Diltiazem HCl 360 mg 03/04/25 09:00 Diltiazem Cd 180 Mg Capsule PO DAILY [facility] Doxazosin Mesylate 4 mg 03/04/25 09:00 Doxazosin 4 Mg Tablet PO DAILY [facility] Ondansetron HCl 4 mg 03/03/25 23:15 Ondansetron Odt 4 Mg Tablet TL Q6HR PRN Nausea / Vomiting Sodium Chloride 10 ml 03/03/25 23:15 Sodium Chloride Flush 0.9% 10 Ml Syringe IVP PRN PRN NEEDED PER PROVIDER ORDERS Sodium Chloride 10 ml 03/04/25 01:00 03/04/25 01:39 Sodium Chloride Flush 0.9% 10 Ml Syringe IVP 10 ml 0100,0900,1700 [facility] Administration Objective Vital Signs/Intake & Output Reviewed Vital Signs: Yes Vital Signs: Vital Signs x48h Temp Pulse Resp BP Pulse Ox 03/04/25 05:30 98.8 F 81 14 172/77 H 97 03/04/25 01:54 97.7 F 16 157/68 H Intake & Output: Intake & Output 03/01/25 03/02/25 03/03/25 03/04/25 23:59 22:59 23:59 23:59 Intake Total 1000 / 1000 150 / 150 Output Total 275 / 275 Balance 1000 / 1000 -125 / -125 Weight (kg) 74.5 kg Objective General Appearance: positive No acute distress and Alert; negative Anxious Eyes Bilateral: positive Normal inspection, PERRL and EOMI ENT: positive ENT inspection nml, Pharynx nml and No signs of dehydration Neck: positive Nml inspection, Thyroid nml and No JVD Respiratory: positive Chest non-tender, No respiratory distress and Breath sounds nml; negative Wheezes, Rales or Rhonchi Cardiovascular: positive No murmur, No gallop and Irregularly irregular; negative Tachycardia or Systolic murmur Abdomen: positive Non-tender, No organomegaly and No distention; negative Guarding or Splenomegaly Back: positive Nml inspection; negative CVA tenderness (R) or CVA tenderness (L) Skin: positive Color nml, No rash, Warm and Dry Extremities: positive Non-tender, Full ROM, Nml appearance and No pedal edema Neurologic/Psychiatric: positive Oriented x3, Motor nml, Mood/affect nml and Other (Patient states that his unsteadiness has almost fully resolved. When asked about it further, he states it has been going on for about 2 to 3 years. Yesterday afternoon, he was in his car, driving home from [place], when he noticed that he started feeling dizzy. He pulled over, and when he tried t) Lab Results 03/03/25 19:40 03/04/25 04:48 Other Labs: Lab Results x24hrs 03/04/25 03/03/25 Range/Units 04:48 19:40 WBC 3.6 L (4.8-10.8) x10^3/uL RBC 4.76 (4.70-6.10) 10^6/uL Hgb 13.7 L (14.0-18.0) g/dL Hct 40.9 L (42.0-52.0) % MCV 85.9 (80.0-94.0) fL MCH 28.8 (27.0-31.0) pg MCHC 33.5 (32.0-36.0) g/dL RDW 13.9 (12.0-15.0) % Plt Count 166 (130-450) 10^3/uL MPV 9.6 (7.4-11.4) fL Neut # (Auto) 2.0 (1.5-6.6) 10^3/uL Lymph # (Auto) 1.0 L (1.5-3.5) 10^3/uL [place] # (Auto) 0.4 (0.0-1.0) 10^3/uL Eos # (Auto) 0.2 (0.0-0.7) 10^3/uL Baso # (Auto) 0.0 (0.0-0.1) 10^3/uL Absolute Nucleated RBC 0.00 x10^3/uL Nucleated RBC % 0.0 /100WBC Sodium 140 136 (135-145) mmol/L Potassium 3.9 4.0 (3.5-4.5) mmol/L Chloride 106 99 L (101-111) mmol/L Carbon Dioxide 28 30 (21-32) mmol/L Anion Gap 6.0 7.0 (6-13) BUN 28 H 28 H (6-20) mg/dL Creatinine 0.8 0.8 (0.6-1.3) mg/dL Estimated GFR (MDRD) 94 94 (>89) Glucose 122 H 106 H (74-104) mg/dL Calcium 8.7 9.7 (8.5-10.3) mg/dL Magnesium 2.4 H (1.7-2.3) mg/dL Total Bilirubin 0.5 (0.2-1.0) mg/dL AST 15 (10-42) IU/L ALT 12 (10-60) IU/L Alkaline Phosphatase 51 (42-121) IU/L Total Protein 7.5 (6.4-8.9) g/dL Albumin 4.7 (3.2-5.5) g/dL Globulin 2.8 (2.1-4.2) g/dL Albumin/Globulin Ratio 1.7 (1.0-2.2) Triglycerides 161 mg/dL Cholesterol 200 ( - 200) mg/dL LDL Cholesterol, Calc 111 ( - 129) mg/dL VLDL Cholesterol 32 mg/dL HDL Cholesterol 57 L (60 - ) mg/dL LDL/HDL Ratio 1.9 (<3.6) Cholesterol/HDL Ratio 3.5 (<5.0) Lipase 63 (11-82) U/L Diagnostic Imaging Diagnostic Imaging Results: positive Final report reviewed Assessment/Plan Problem List (1) Dissection of vertebral artery: (2) Unsteady gait: Impression: Patient presented with unsteady gait, acute disequilibrium. CTA shows greater than 50% stenosis of the intracranial right vertebral artery, which continues as a diminutive vessel to the basilar artery confluence, with concern for dissection. Teleneurology spoken with by ER physician: Recommend MRI of the brain. If there is an acute CVA, recommend addition of an antiplatelet agent, AKA aspirin 81 mg daily to his existing anticoagulation with Xarelto daily. Also recommended MRA of the head and neck with contrast, likely for further characterization and clarification of dissection, and to assess if there is any intraluminal hematoma or aneurysm noted. Both of these have been ordered, remain pending. Will allow permissive hypertension for another 24 hours. Lipid panel completed, and within normal limits. If MRI is positive for acute stroke, will start high intensity statin. A1c of 6.2% in 09/22. Echo with bubble study has also been ordered. Physical therapy evaluation also ordered. (3) Atrial fibrillation: Impression: Patient with a longstanding history of atrial fibrillation. Rate controlled off any medications. Continue home Xarelto. Qualifiers: Atrial fibrillation type: unspecified Qualified Code(s): I48.91 - Unspecified atrial fibrillation (4) Hypertension: Impression: Currently diet controlled. Continue to monitor off medications. Has a PCP appointment in [address] Brady. Qualifiers: Hypertension type: unspecified Qualified Code(s): I10 - Essential (primary) hypertension (5) Diabetes: Impression: Monitor off sliding scale insulin. Continue carb controlled diet. Qualifiers: Diabetes mellitus complication status: with other specified complication Diabetes mellitus care home insulin use: without care home use Diabetes mellitus type: type 2 Qualified Code(s): E11.69 - Type 2 diabetes mellitus with other specified complication
[2025-03-04] MEDS: DOXAZOSIN 4 MG TABLET PO SCH (10:23)
[2025-03-04] MEDS ORDERED: GADOTERATE MEGLUMINE 7.5 MMOL/15 ML VIAL ONE (11:36)
--- NOTE | 2025-03-04 13:28 | MRI Report ---
PROCEDURE: MRI Brain WO INDICATIONS: stroke evalaution TECHNIQUE: Multisequence MRI of the brain was performed without intravenous contrast. COMPARISON: CT head dated 03/03/2025, CT angiogram of the head and neck dated 03/03/2025 FINDINGS: Image quality: Diagnostic. CSF Spaces: Basal cisterns are patent. No extra-axial fluid collections. Ventricles are normal in size and shape. Brain: No intracranial mass effect or hemorrhage. Lucia/white matter interface is normal. Brainstem appears normal. Diffusion-weighted images demonstrate no acute ischemic insult. No chronic ischemic insults. Age-related volume loss and age appropriate mild to moderate small vessel ischemic change. Normal intravascular flow voids are present. Skull and face: Calvarium has normal marrow signal. Orbits appear normal. Sinuses: Sinuses and mastoids are clear. IMPRESSION: No acute intracranial abnormality. Age-related volume loss and mild to moderate age-appropriate small vessel ischemic change. Reviewed by: Nilesh Reich MD on 03/04/2025 1:24 PM PST Approved by: Nilesh Reich MD on 03/04/2025 1:24 PM PST Station ID: [id number]
--- NOTE | 2025-03-04 13:49 | MRI Report ---
PROCEDURE: MRI Angio Head WO INDICATIONS: vertebral artery dissection TECHNIQUE: [id number] 3-D MR angiogram of the brain was obtained without contrast and 3-dimensional maximum intensity projection (MIP) volume rendering was constructed. COMPARISON: CT angiogram head and neck 03/03/2025 FINDINGS: Internal carotid arteries: No acute findings. Intracranial ICA are patent with no significant stenosis. No occlusion. No aneurysm. Anterior cerebral arteries: Unremarkable. No significant stenosis. No occlusion. No aneurysm. Middle cerebral arteries: Unremarkable. No significant stenosis. No occlusion. No aneurysm. Posterior cerebral arteries: Unremarkable. No significant stenosis. No occlusion. No aneurysm. Basilar artery: Unremarkable. No significant stenosis. No occlusion. No aneurysm. Vertebral arteries: The right V4 intradural vertebral artery is congenitally diminutive, there is a focal stenosis proximally, but no evidence of vertebral artery dissection. Dominant left vertebral artery supplies a widely patent basilar artery Other: Visualized portions of the brain unremarkable. IMPRESSION: Congenitally diminutive right V4 VCA segment. No dissection. Reviewed by: Rodolfo Good MD on 03/04/2025 12:46 PM [place] Approved by: Rodolfo Good MD on 03/04/2025 12:46 PM [facility] Station ID: [id number]
--- NOTE | 2025-03-04 14:03 | Discharge Summary ---
"Discharge Summary Admit Date: 03/03/25 Discharge Date: 03/04/25 Discharging Provider: Dr. Umberto Laws Primary Care Provider: Dr. Jasvir Tolbert Code Status: Attempt Resuscitation Discharge Facility Name: Home, self care DIAGNOSES Discharge Diagnoses with Status of Each Condition: Unsteady gaitpatient presented with unsteady gait, acute disequilibrium. 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 Teleneurology spoke with the ER physician who recommended MRI of the brain as well as an MRA. These were completed, and showed no acute stroke. 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 He will be continued on his Xarelto. Lipid panel is within normal limits. He will also need close follow-up with his PCP to determine other etiologies of his dizziness. Atrial fibrillationcontinue home Xarelto. Hypertensioncurrently diet controlled. Continue to monitor off medications. Has a PCP appointment in 1 week. Advised to monitor his blood pressure closely in the outpatient setting. Diabetesdiet controlled. HPI History of Present Illness: Fernando Scott: 79 yom h/o afib on DOAC. presented with feeling dizzy. symptoms started around 8am. He explained the dizziness was worsened when he was moving around. He also had associated mild worsening of his vision and his gait. Throughout the day the symptoms did not improve with rest. He also noticed that his blood-pressure was unusually high with systolic 160-180s, this did not improve with rest. In the ED, he was noticed to have ataxia and veered to the left with walking. 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 this was discussed with tele-stroke and it was advised that patient be admitted for further evaluation and management. This visit was performed using telehealth tools, including phone and live-video. patient provided verbal consent to complete this telemedicine encounter. During the time my interview and evaluation, the patient was located at [facility] in the [facility], I was located in [place]. CONSULTS | PROCEDURES Consultations: Teleneurology, PT Procedures: CTA11/3greater than 50% stenosis of intracranial right vertebral artery, concern for dissection. Head CT11/3no acute CVA. Brain MRI11/4no acute intracranial abnormality. Brain MRA11/4congenitally diminutive right V4 MACHINE CRATER segment, no dissection. HOSPITAL COURSE Hospital Course: Patient is a 79-year-old male with a history of diabetes, hypertension, atrial fibrillation on Xarelto who presented for unsteady gait, disequilibrium, as well as a elevated blood pressure. CT head on mission was negative for acute stroke. CTA showed concerns for some possible vertebral artery dissection. Teleneurology was consulted who recommended an MRI of the brain as well as an MRA. This was completed, and confirmed that there was no dissection, just a congenitally small vessel. No acute CVA was also noted. Patient was resumed on his Xarelto. He will need close follow-up with his primary care provider to determine other causes of disequilibrium, including possible benign positional vertigo. He was discharged in stable condition. Plan is outpatient follow-up with his PCP. ALLERGIES Allergies Allergy/AdvReac Type Severity Reaction Status Date / Time No Known Drug Allergies Allergy Verified 03/03/25 19:26 MEDICATIONS Ambulatory Orders Medication Instructions Recorded Confirmed doxazosin 4 mg tablet 4 mg PO DAILY 06/24/2103/04 brimonidine 0.2 % eye drops 1 drp ophthalmic (eye) BID 03/04/25 03/04/25 finasteride 5 mg tablet 5 mg PO DAILY 03/04/2503/04 ketorolac 0.4 % eye drops 1 drp ophthalmic (eye) QID 1 05/04/24 03/04/25 metformin 500 mg tablet,extended 500 mg PO DAILY 03/0403/04/25 release 24 hr rivaroxaban 20 mg tablet 20 mg PO QPM 03/04/25 timolol maleate 0.5 % eye drops 1 drp ophthalmic (eye) BID 03/04/25 03/04/25 PHYSICAL EXAM AT DISCHARGE Vital Signs: Vital Signs x48h Temp Pulse Resp BP Pulse Ox 03/04/25 17:20 97.7 F 58 L 20 166/75 H 100 General Appearance: positive No acute distress and Alert; negative Anxious Eyes Bilateral: positive Normal inspection, PERRL and EOMI ENT: positive ENT inspection nml, Pharynx nml and No signs of dehydration Neck: positive Nml inspection, Thyroid nml and No JVD Respiratory: positive Chest non-tender, No respiratory distress and Breath sounds nml; negative Wheezes, Rales or Rhonchi Cardiovascular: positive No murmur, No gallop and Irregularly irregular; negative Tachycardia or Systolic murmur Abdomen: positive Non-tender, No organomegaly and No distention; negative Guarding or Splenomegaly Back: positive Nml inspection; negative CVA tenderness (R) or CVA tenderness (L) Skin: positive Color nml, No rash, Warm and Dry Extremities: positive Non-tender, Full ROM, Nml appearance and No pedal edema Neurologic/Psychiatric: positive Oriented x3, Motor nml, Mood/affect nml LABS 03/03/25 19:40 03/04/25 04:48 FOLLOW UP Follow Up: Follow up PCP. Follow up ENT. TIME SPENT Time Spent in Discharge (Minutes): 35 Discharge Plan Discharge Patient Disposition: Home, Self Care Prescriptions: Continued doxazosin 4 MG tablet 4 mg PO DAILY brimonidine 0.2 % drops 1 drp ophthalmic (eye) BID Patient Comments: INSTILL 1 DROP INTO RIGHT EYE TWICE A DAY timolol maleate 0.5 % drops 1 drp ophthalmic (eye) BID Patient Comments: instill 1 drop into right eye twice a day metformin 500 mg tablet extended release 24 hr 500 mg PO DAILY finasteride 5 mg tablet 5 mg PO DAILY Patient Comments: TAKE 1 TABLET BY MOUTH EVERY DAY ketorolac 0.4 % drops 1 drp ophthalmic (eye) QID rivaroxaban 20 mg tablet 20 mg PO QPM Rx Instructions: must administer with evening meal Activity Restrictions: Activity as Tolerated Diet: Diabetic Health Concerns: You came in because you were having dizziness, and you were worried about your high blood pressure. Initially, we did a CT scan of the head, as well as a CT angiogram of your head and neck which looks at the vessels of the head and neck. Initially, there were some concerns for what we call a vertebral artery dissection. We followed this up with a brain MRI and a brain MRA which shows that there was no acute stroke, and there was no dissection noted in that right vertebral artery. As discussed, you do have a small vessel there that you are likely born with. This was described as a congenitally diminutive right V4 VCA segment. This was seen more clearly on the MRI/MRA. I understand that this dizziness has been going on for you for the past few years. As discussed, I would ask your primary care provider to look into an ENT referral to make sure we are not missing something like benign positional vertigo. In the meantime, please continue to take your Xarelto as prescribed. Please keep a blood pressure log, and bring it in with you to your next appointment. I am glad you have an appointment with your PCP in the next week. We are glad you are feeling better, thank you for allowing us to take care of you. Print Language: Albanian Patient Instructions: Dizziness Fainting Causes Stand Alone Forms: PCP List Follow-up Care: JASVIR TOLBERT MD [Primary Care Provider, Internal Medicine] Vitals documented within 30 minutes of discharge?: Yes"
--- NOTE | 2025-03-04 15:01 | PHARMACY PROGRESS NOTE ---
Best Possible Medication History Admit Date and Time: 03/03/25 2211 Home Medications Medication Instructions Recorded Confirmed Type doxazosin 4 mg tablet 4 mg PO DAILY 06/24/2103/04 History brimonidine 0.2 % eye drops 1 drp ophthalmic (eye) BID 03/04/25 03/04/25 History finasteride 5 mg tablet 5 mg PO DAILY 03/04/2503/04 History ketorolac 0.4 % eye drops 1 drp ophthalmic (eye) QID 1 05/04/24 03/04/25 History metformin 500 mg tablet,extended 500 mg PO DAILY 03/0403/04/25 History release 24 hr rivaroxaban 20 mg tablet 20 mg PO QPM 03/04/25 History timolol maleate 0.5 % eye drops 1 drp ophthalmic (eye) BID 03/04/25 03/04/25 History Processed by: Pharmacy (Medication Reconciliation completed by [employer] OperatorCarlos) Medications reviewed in ED?: No Medication History completed: Yes Patient Interview: Completed Secondary Source(s): Insurance records (Xarelto filled in bruna, do not have fill hx on this one) [facility] Statement: As the person ultimately responsible for medication therapy, providers are able to order a medication from an existing home medication list in [facility] via the "Reconcile Routine" prior to Confirmation of that medication by support services specialist. Such practice is discouraged except when the physician, in their clinical judgment, deems that a medical need exists for a medication without regard to previous use.
[2025-03-04 16:20] LABS: MICROALBUMIN,URINE < 0.7 mg/dL
--- NOTE | 2025-03-04 16:23 | PT Plan of Care ---
PT Plan of Care Physical Therapy Plan of Care: Diagnosis Diagnosis dizziness, ataxia Referring Provider Claritaanastacio Scott Patient Status Observation Chief Complaint Chief Complaint dizziness, difficulty walking/balancing Onset of Chief Complaint EXTERNAL RELATIONS MANAGER Medical History (Updated 03/04/25 @ 11:46 by Umberto Laws MD) Hyperlipemia Cataract Hypertension Retinal tear PVD (peripheral vascular disease) Diabetes Balance/ Functional Results Sitting Balance Good Standing Balance Good SLOAN Balance Evaluation Total 41 Score Sloan Balance Test Low Fall Risk Interpretation Assessment Assessment Pt is a 79yo M referred for PT eval d/t dizziness, and ataxia. CTA positive for VA dissection however MRI indicates no dissection present. Please see medical record for further details. PMH includes Afib. Cleared for eval by hospitalist. Upon PT eval, pt had just returned to b/s chair from bathroom, ambulating in room without AD. RN aware. Pt reports dizziness has resolved but still feels "off balance." BUE/BLE mobility, strength, and coordination WNL aside from h/o L shoulder separation. Sloan balance test indicates low fall risk per score of 41/56. However, pt demonstrates loss of balance during single leg stance, eyes closed conditions, and tandem stance. Pt also states he practices yoga regularly including head stands for up to 30 minutes. D/t possible VA compromise, PT advised pt to hold off on inversions and excessive overhead lifting until cleared by PCP. Pt agrees . When medically clear, PT rec dc home with OPPT to address balance deficits as described above. PT Plan of Care Frequency Evaluation only, no further P.T. Discharge Recommendations Discharge Location Previous Living Situation Support/Services Needed Outpt. P.T. Transport Needs at Discharge Personal vehicle
[2025-03-04 17:49] VITALS: BP 166/75; TEMP 97.7; O2SAT 100
[2025-03-04] MEDS ORDERED: DOXAZOSIN 4 MG TABLET PO SCH (21:00)
--- NOTE | 2025-03-06 09:14 | ECHO Report ---
Version: 1 Study ID: [id number] [id number] Adult Echocardiogram Report Name: VANDANA MORALES Study Date: 03/04/2025, 10: 22 AM BP: 115 / 77 mmHg [place] [facility] [place]01 HR: 68 bpm : 1945 (MM/DD/YYYY) Gender: Male Height: 71 in Age: 79 Years Weight: 164.244 lb BSA: 1.94 m² Reason For Study: stroke evaluation History: stroke evaluation h/o paroxysmal atrial fibrillation Interpretation Summary Injection of agitated saline documented no interatrial shunt There is mild concentric increase in the wall thickness of the left ventricle. Global left ventricular systolic function is normal. The calculated ejection fraction, as determined by the biplane method of disks, is 60%. The right ventricular systolic function is normal. No concerning cardiac thomas disease is noted. Left Ventricle: The left ventricle is normal in size. There is mild concentric increase in the wall thickness of the left ventricle. Global left ventricular systolic function is normal. The calculated ejection fraction, as determined by the biplane method of disks, is 60%. No regional wall motion abnormalities are present. Assessment of left ventricular filling pressure is indeterminate. Right Ventricle: The right ventricle is borderline dilated. The right ventricular systolic function is normal. The tricuspid annular plane systolic excursion (TAPSE) measurement is 2.3 cm. Aortic Valve: The aortic valve is trileaflet. The aortic valve is mildly thickened. Aortic valve sclerosis is present without stenosis. Trace to mild aortic regurgitation is present. Mitral Valve: The mitral valve leaflets appear thickened, but with normal motion. No evidence of mitral stenosis is seen. There is trace mitral regurgitation. Tricuspid Valve: The tricuspid valve is normal in structure and function. Trace tricuspid regurgitation present. Pulmonic Valve: The pulmonic valve is normal in structure and function. Trace pulmonic valvular regurgitation is present. Left Atrium: The left atrial size is normal. Right Atrium: The right atrium is mildly dilated. The inferior vena cava is normal in diameter (<2.1cm) and there is complete collapse with inspiration (estimated right atrial pressure 0-5mmHg). Atrial Septum: Injection of agitated saline documented no interatrial shunt at rest or with Valsalva maneuver. Lipomatous hypertrophy of the interatrial septum is present. Aorta: The diameter of the ascending aorta is 3.1 cm. The aorta at the sinus of Valsalva measures 3.5cm. Pulmonary Artery: The pulmonary artery systolic pressure is normal. The pulmonary artery systolic pressure, calculated from a peak tricuspid regurgitant velocity in conjunction with an estimated right atrial pressure, is 22 - 27mmHg. Pericardium/Pleural Space: There is no pericardial effusion. Left Ventricle IVSd: 1.19 cm LVIDd: 4.2 cm LVPWd: 1.14 cm LVIDs: 3.1 cm EDV(MOD-sp4): 86.3 ml LVLd ap4: 8.3 cm ESV(MOD-sp4): 31.7 ml LVLs ap4: 7.6 cm EDV(MOD-sp2): 89.7 ml ESV(MOD-sp2): 38.4 ml Right Ventricle TAPSE: 2.34 cm Atria LA dimension: 5.1 cm LAV(MOD-sp4): 46.9 ml LAV(MOD-sp2): 40.9 ml Diastolic Function Pulm A Revs Kyle: 23.1 cm/sec Pulm A Revs Dur: 0.10 sec MV dec time: 0.29 sec MV E max kyle: 48.2 cm/sec MV A max kyle: 55.4 cm/sec Aortic Valve LV V1 mean P.43 mmHg LV V1 mean: 56.3 cm/sec LV V1 VTI: 16.4 cm LV V1 max: 74.8 cm/sec LV V1 max P.24 mmHg Ao max P.0 mmHg Ao V2 max: 141.8 cm/sec Tricuspid Valve TR max P.5 mmHg TR max kyle: 231.9 cm/sec TV max P.5 mmHg Aorta Ao root diam: 3.5 cm MMode/2D Measurements & Calculations Ao root diam: 3.5 cm BMI: 22.9 kilograms/m² BSA([facility] [place]): 1.93 m² EDV(MOD-sp2): 89.7 ml EDV(MOD-sp4): 86.3 ml EF (est.): 59.8 % EF Mod BP: 59.9 % ESV(MOD-sp2): 38.4 ml ESV(MOD-sp4): 31.7 ml IVSd: 1.19 cm LA A4C-A/L: 16.6 cm² LA dimension: 5.1 cm LA ESV-A/L: 41.0 ml LAV(MOD-sp2): 40.9 ml LAV(MOD-sp4): 46.9 ml LVIDd: 4.2 cm LVIDs: 3.1 cm LVLd ap4: 8.3 cm LVLs ap4: 7.6 cm LVPWd: 1.14 cm RA A4Cs: 20.6 cm² TAPSE: 2.34 cm Doppler Measurements & Calculations Ao max P.0 mmHg Ao V2 max: 141.8 cm/sec Lat E/e': 5.0 LV V1 max: 74.8 cm/sec LV V1 max P.24 mmHg LV V1 mean: 56.3 cm/sec LV V1 mean P.43 mmHg LV V1 VTI: 16.4 cm Med E/e': 7.6 MV A max kyle: 55.4 cm/sec MV dec time: 0.29 sec MV DVI-pr: 0.87 MV E max kyle: 48.2 cm/sec PA max P.29 mmHg PA V2 max: 75.7 cm/sec Pulm A Revs Dur: 0.10 sec Pulm A Revs Kyle: 23.1 cm/sec RAP systole: 5.0 mmHg TR max P.5 mmHg TR max kyle: 231.9 cm/sec TV max P.5 mmHg Other Measurements & Calculations Ao root area: 9.4 cm² EDV(Teich): 78.6 ml EF(MOD-sp2): 57.1 % EF(MOD-sp4): 63.3 % EF(sp-el): 51.4 % EF(Teich): 52.9 % ESV(Teich): 37.0 ml FS: 26.9 % MV E/A: 0.87 RVSP(TR): 26.5 mmHg SV(MOD-sp4): 54.6 ml Procedure Notes: A complete two-dimensional transthoracic echocardiogram was performed (2D, M- mode, Doppler and color flow Doppler). Indication: Evaluate for source of embolism. The patient was comfortable and cooperative throughout the procedure. The underlying rhythm was sinus. CPT Codes: 46494/[id number]: Transthoracic Echo with Spectral and Color Doppler. MD Maylin Sánchez 03/06/2025, 9: 13 AM Ordering Physician: Clarita Scott Referring Physician: Nathaniel Ferrer Performed By: Ioana Reed RDCS
== END 2025-03-04 17:26 | disposition home or self-care (01) | DRG 149 ==
LOC: ED 19:06 → MS2 19:06
PROVIDERS: ADMIT Hospitalist; ATTEND Internal Medicine